=== PATIENT | male | born 1970 | race Caucasian/White ===

== ENCOUNTER 2018-03-24 15:44 | Emergency (ER) | payer MEDICARE ==
[~2018-03-24] VITALS: Ht 172.7 cm; Wt 151.8 kg
[2018-03-24 16:24] VITALS: Ht 172.7 cm; Wt 151.8 kg
[2018-03-24] MEDS ORDERED: CYCLOBENZAPRINE10 MG PO (23:50)
[2018-03-24] MEDS ORDERED: IBUPROFEN800 MG PO (23:50)
[2018-03-24] MEDS ORDERED: ACETAMINOPHEN500 M1 PO (23:50)
[2018-03-25 02:36] VITALS: BP 141/78
== END 2018-03-25 00:19 | disposition home or self-care (01) ==
LOC: D.ER 15:44
DX: M54.5 Low back pain (principal); M62.830 Muscle spasm of back; V43.52XA Car driver injured in collision with other type car in traffic accident, initial encounter; Y93.89 Activity, other specified; Y92.410 Unspecified street and highway as the place of occurrence of the external cause; E11.9 Type 2 diabetes mellitus without complications; I10 Essential (primary) hypertension; F17.200 Nicotine dependence, unspecified, uncomplicated

== ENCOUNTER → 2018-04-08 10:34 | Outpatient (CLI) | payer MEDICARE ==
[2018-03-24 16:24] VITALS: BMI 50.9
[~2018-04-08 10:34] MED LIST: ACETAMINOPHEN500 M1 PO; CYCLOBENZAPRINE10 MG PO; IBUPROFEN800 MG PO
== END | disposition home or self-care (01) ==
LOC: D.MRI 10:34
DX: M54.5 Low back pain (principal)